=== PATIENT | female | born 1965 | race Hispanic/Latino ===

== ENCOUNTER 2020-11-16 13:28 | Emergency (ER) | payer OTHER ==
[~2020-11-16] VITALS: Ht 162.6 cm; Wt 66.7 kg
[2020-11-16] MEDS ORDERED: IBUPROFEN 600 MG TAB PO STA (14:02)
[2020-11-16] MEDS ORDERED: IBUPROFEN 600 MG TAB ONE (14:17)
[2020-11-16] MEDS ORDERED: PREDNISONE 20 MG TAB ONE (14:17)
[2020-11-16] MEDS ORDERED: PENICILLIN G BENZATHINE LA 1.2 MU TBX IM STA (14:17)
[2020-11-16] MEDS ORDERED: ONDANSETRON ODT4 MG PO (14:25)
[2020-11-16] MEDS ORDERED: PREDNISONE20 MG PO (14:25)
[2020-11-16] MEDS ORDERED: PENICILLIN G BENZATHINE LA 1.2 MU TBX ONE (14:37)
[2020-11-17] MEDS ORDERED: PREDNISONE 20 MG TAB PO SCH ×2 (09:00)
== END 2020-11-16 15:50 | disposition home or self-care (01) ==
LOC: FSED 13:34
DX: R50.9 Fever, unspecified (principal); J02.0 Streptococcal pharyngitis
CPT/HCPCS: 71045; 83518; 87400; 99283; J0561; J7512